=== PATIENT | male | born 1955 | race Caucasian/White ===

== ENCOUNTER 2016-08-27 07:09 | Emergency (ER) | payer MEDICAID ==
--- NOTE | ~2016-08-27 | CT4 ---
[facility] A Service of [facility] [place] RADIOLOGY TEXT RESULTS PATIENT: SHENG ABURTO JR LOCATION: SED : 54 UNIT #: [id number] AGE: [address]: Misael Bolaños MD SEX: M ORDER DR: [id number] [place] [id number] E MR#: [id number] Acc #: [id number] NAME: SHENG ABURTO JR : 1955 SEX: M STUDY DATE/TIME: 08/27/2016 8:47 UNIT: SED ROOM: STUDY DESCRIPTION: CT Abd and Pelv Wo Cont Attending Physician: Misael Bolaños M.D. Ordering Physician: Misael Bolaños M.D. Primary Care Physician: Jc Granado M.D. MEDICAL IMAGING REPORT This report is preliminary unless electronic signature is present. EXAM CT abdomen and pelvis 08/27 INDICATIONS Sudden onset of right groin pain this morning about 1.5 hours ago. TECHNIQUE Axial images were obtained through the abdomen and pelvis without the administration of contrast. Multiplanar reformats were obtained. This CT exam was performed with one or more of the following radiation dose reduction techniques: automatic exposure control, adjustment of mA and/or kV according to patient size, and iterative reconstruction. COMPARISON STUDIES No comparison. FINDINGS ABDOMEN: There is moderate right hydronephrosis secondary to a 4 mm stone in the distal right ureter just above the UVJ. No other stones are identified. The unenhanced solid organs are otherwise normal. Lung bases are emphysematous but clear. Unopacified GI tract is within normal limits. PELVIS: Urinary bladder is normal. There is mild sigmoid diverticulosis. GI tract, including the appendix, is otherwise normal. IMPRESSION 1. Moderate right hydronephrosis secondary to a 4 mm stone in the distal right ureter just above the UVJ. No other stones are seen. 2. Mild colonic diverticulosis. Normal appendix. 3. Emphysema. [facility] A Service [facility] RADIOLOGY TEXT RESULTS PATIENT: SHENG ABURTO JR LOCATION: SED : 54 UNIT #: [id number] AGE: [address]: Misael Bolaños MD SEX: M ORDER DR: Dictated by... Rafa Renee Jr., M.D. THIS IS AN ELECTRONICALLY VERIFIED REPORT Rafa Renee Jr., M.D. at 08/29/2016 7:18 AM ARIELLE/aba TD: 08/27/2016 16:32 JOB #: [id number] MEDICAL IMAGING REPORT Page 1 of 1
[2016-08-27] MEDS ORDERED: SUBOXONE 12 MG1 EACH (07:27)
[2016-08-27] MEDS ORDERED: ALBUTEROL17 GM (07:28)
[2016-08-27 08:30] LABS: URINE SOURCE CLEAN CATCH
[2016-08-27 08:31] LABS: BASOPHIL% 0.6 % (0-2.5); EOSINOPHIL# 0.1 X10e3 (0-0.7); HEMATOCRIT 45.4 % (38.0-50.0); HEMOGLOBIN 15.7 gm/dL (13.0-16.0); LYMPHOCYTE# 1.3 X10e3 (1.0-3.5); LYMPHOCYTE% 16.5 % (17.0-45.0); MEAN CELL VOLUME 102.7 FL (83-96); MEAN CORPUSCULAR HEMOGLOBIN 35.5 PG (28-34); MEAN CORPUSCULAR HGB CONC 34.6 g/dL (30-36); MEAN PLATELET VOLUME 9.2 FL (6.5-11.5); MONOCYTE# 0.6 X10e3 (0-1.0); MONOCYTE% 7.7 % (3.0-12.0); NEUTROPHIL# 5.8 X10e3 (1.5-7.1); NEUTROPHIL% 74.2 % (40-75); PLATELET COUNT 140 X10e3 (140-420); RED BLOOD COUNT 4.42 X10e (3.90-5.60); RED CELL DISTRIBUTION WIDTH 13.2 % (11.0-15.5); WHITE BLOOD COUNT 7.8 X10e3 (4.0-10.5)
[2016-08-27 08:32] LABS: URINE APPEARANCE CLEAR; URINE BILIRUBIN NEG (NEG); URINE BLOOD 2+ (NEG); URINE COLOR YELLOW; URINE GLUCOSE NEG (NORM); URINE KETONE TRACE (NEG); URINE LEUKOCYTE ESTERASE NEG (NEG); URINE NITRATE NEG (NEG); URINE PROTEIN NEG (NEG); URINE SPECIFIC GRAVITY >=1.030 (1.003-1.035); URINE UROBILINOGEN 0.2 MG/DL (NORM)
[2016-08-27 08:41] LABS: DIFF IND NO
[2016-08-27 08:42] LABS: MICRO INDICATED? YES
[2016-08-27 08:44] LABS: CULTURE INDICATED? NO; URINE BACTERIA NEG (NEG); URINE WBC 0-2 /[HPF] (0-5)
[2016-08-27 08:46] LABS: GLOM FILT RATE Estimated 80.9 mL/min (>60); POTASSIUM 3.4 mmol/L (3.5-5.1)
== END 2016-08-27 10:48 | disposition left against medical advice (07) ==
LOC: SED 07:09
PROVIDERS: Emergency Medicine
DX: N13.2 Hydronephrosis with renal and ureteral calculous obstruction (principal); F17.210 Nicotine dependence, cigarettes, uncomplicated
CPT/HCPCS: 74176; 80048; 81003; 85025; 96361; 96374; 96375; 96376; 99284; J1170; J1885; J2405